=== PATIENT | male | born 1995 | race Caucasian/White ===

== ENCOUNTER 2017-02-28 17:27 | Emergency (ER) | payer SELFPAY ==
[~2017-02-28] VITALS: Ht 177.8 cm; Wt 109.1 kg
[2017-02-28 17:27] VITALS: BP 174/81
[2017-02-28] MEDS ORDERED: ZOFR4TAB3 PO (20:12)
[2017-02-28] MEDS ORDERED: MAGICMW SSP (20:12)
[2017-02-28] MEDS ORDERED: MAGIC MOUTHWASH SUSPENSION BTL SS ONE (20:15)
[2017-02-28] MEDS ORDERED: ONDANSETRON 4 MG ORAL DISINTEGRATING TAB (S0181) PO ONE (20:15)
== END 2017-02-28 20:36 | disposition home or self-care (01) ==
LOC: M ED 17:27
DX: J02.8 Acute pharyngitis due to other specified organisms (principal); R11.2 Nausea with vomiting, unspecified; F17.210 Nicotine dependence, cigarettes, uncomplicated; Z88.0 Allergy status to penicillin; Z88.8 Allergy status to other drugs, medicaments and biological substances

== ENCOUNTER 2017-03-07 16:34 | Emergency (ER) | payer SELFPAY ==
[~2017-03-07] VITALS: Ht 175.3 cm; Wt 110.0 kg
[~2017-03-07 16:34] MED LIST: MAGICMW SSP; ZOFR4TAB3 PO
[2017-03-07 16:53] VITALS: BP 169/97
[2017-03-07] MEDS ORDERED: VALA1TAB2 PO (18:23)
[2017-03-07] MEDS ORDERED: PRED20TA PO (18:23)
[2017-03-07 18:35] LABS: BASO % 0.3 % (0.0-1.0); EOS # 0.2 10^3/uL (0.0-0.50); EOS % 1.3 % (0.0-3.0); IMMATURE GRANULOCYTE % 0.7 % (0-0); LYMPH # 2.7 10^3/uL (1.5-6.5); LYMPH % 22.9 % (24.0-44.0); MEAN CORPUSCULAR HEMOGLOBIN 29.2 pg (27.0-33.0); MEAN CORPUSCULAR HGB CONC 34.3 g/dl (32.0-36.5); MEAN CORPUSCULAR VOLUME 85.2 fl (80.0-96.0); MONO # 0.9 10^3/uL (0.0-0.8); MONO % 7.2 % (0.0-5.0); NEUTROPHILS # 8.1 10^3/uL (1.8-7.7); NEUTROPHILS % 67.6 % (36.0-66.0); PLATELET COUNT, AUTOMATED 265 10^3/uL (150-450); RED CELL DISTRIBUTION WIDTH 13.9 % (11.5-14.5)
[2017-03-07 19:35] LABS: ERYTHROCYTE SEDIMENTATION RATE 8 mm/hr (0-15)
[2017-03-11 00:11] LABS: Lyme Disease IgG/IgM Antibodie <0.91 ISR (0.00-0.90); Lyme Disease IgM Ab Quantitati <0.80 index (0.00-0.79)
== END 2017-03-07 18:56 | disposition home or self-care (01) ==
LOC: M ED 16:34
DX: G51.0 Bell's palsy (principal); Z88.0 Allergy status to penicillin; Z88.8 Allergy status to other drugs, medicaments and biological substances

== ENCOUNTER 2018-02-03 18:23 | Emergency (ER) | payer SELFPAY ==
[2018-02-03] MEDS: ALBUTEROL SULFATE 2.5 MG/0.5 ML INH NEB SOLN NEB (18:48)
[2018-02-03] MEDS: DOXYCYCLINE HYCLATE 100 MG TAB PO (19:36)
== END 2018-02-03 19:43 | disposition home or self-care (01) ==
LOC: M ED 18:23
DX: J18.9 Pneumonia, unspecified organism (principal); J45.909 Unspecified asthma, uncomplicated; F17.210 Nicotine dependence, cigarettes, uncomplicated; Z88.0 Allergy status to penicillin
CPT/HCPCS: 71046

== ENCOUNTER 2020-10-10 16:43 | Emergency (ER) | payer OTHER, SELFPAY ==
[~2020-10-10] VITALS: Ht 177.8 cm; Wt 127.6 kg
[~2020-10-10 16:43] MED LIST changes: +DOXY100C37 PO; +PRED20TA PO; +PROAAER10 INH; +VALA1TAB5 PO; +ZOFR4TAB14 PO; -ZOFR4TAB3 PO
[2020-10-10] MEDS ORDERED: CLINDAMYCIN 150MG CAPSULE PO ONE (19:25)
[2020-10-10] MEDS ORDERED: KETOROLAC 30 MG/ML 1ML VIAL IM ONE (19:25)
[2020-10-10] MEDS ORDERED: KETO10TAB PO (19:25)
[2020-10-10] MEDS ORDERED: carBAMazepine 200MG TABLET PO ONE (19:25)
[2020-10-10] MEDS ORDERED: CARB20TA PO (19:25)
[2020-10-10] MEDS ORDERED: CLEO300C2 PO (19:25)
[2020-10-10] MEDS ORDERED: GABA-282 PO (19:25)
[2020-10-10] MEDS ORDERED: GABAPENTIN 300 MG CAP PO ONE (19:25)
[2020-10-10 19:38] VITALS: BP 138/77
== END 2020-10-10 20:02 | disposition home or self-care (01) ==
LOC: M ED 16:43
DX: K04.7 Periapical abscess without sinus (principal); G50.0 Trigeminal neuralgia; K02.9 Dental caries, unspecified; J45.909 Unspecified asthma, uncomplicated; F17.200 Nicotine dependence, unspecified, uncomplicated; Z88.0 Allergy status to penicillin
CPT/HCPCS: 96372; 99283; J1885

== ENCOUNTER → 2020-11-22 | Outpatient (CLI) | payer OTHER ==
[~2020-11-22] MED LIST changes: +CARB20TA PO; +CLEO300C2 PO; -DOXY100C37 PO; +DOXY1CAP62 PO; +GABA-282 PO; +KETO10TAB PO
[2020-11-22 13:43] LABS: BASO % 0.5 % (0.0-1.0); EOS # 0.2 10^3/uL (0.0-0.5); EOS % 2.5 % (0.0-3.0); HEMATOCRIT 42.8 % (42.0-52.0); HEMOGLOBIN 14.5 g/dl (13.5-17.5); LYMPH # 2.2 10^3/uL (1.5-5.0); LYMPH % 27.5 % (24.0-44.0); MEAN CORPUSCULAR HEMOGLOBIN 29.4 pg (27.0-33.0); MEAN CORPUSCULAR HGB CONC 33.9 g/dl (32.0-36.5); MEAN CORPUSCULAR VOLUME 86.8 fl (80.0-96.0); MONO # 0.7 10^3/uL (0.0-0.8); MONO % 9.3 % (2.0-8.0); NEUTROPHILS # 4.7 10^3/uL (1.5-8.5); NEUTROPHILS % 59.7 % (36.0-66.0); PLATELET COUNT, AUTOMATED 250 10^3/uL (150-450); RED BLOOD COUNT 4.93 10^6/uL (4.30-6.10); WHITE BLOOD COUNT 7.9 10^3/uL (4.0-10.0)
[2020-11-22 14:24] LABS: HEMOGLOBIN A1c 5.1 %
[2020-11-22 14:28] LABS: ALBUMIN 3.9 GM/DL (3.2-5.2); ALT/SGPT 21 U/L (12-78); BILIRUBIN,TOTAL 0.5 MG/DL (0.2-1.0); BLOOD UREA NITROGEN 12 MG/DL (7-18); CALCIUM LEVEL 8.6 MG/DL (8.5-10.1); CARBON DIOXIDE LEVEL 26 MEQ/L (21-32); CHLORIDE LEVEL 108 MEQ/L (98-107); CHOLESTEROL LEVEL 118 MG/DL (<200); CHOLESTEROL RISK RATIO 3.105 (<5); GLOMERULAR FILTRATION RATE > 60.0 (>60); GLUCOSE, FASTING 97 MG/DL (70-100); HDL CHOLESTEROL 38 MG/DL (>40); LDL CHOLESTEROL 62 MG/DL (<100); NON-HDL-C 80 MG/DL; POTASSIUM SERUM 4.7 MEQ/L (3.5-5.1); SODIUM LEVEL 139 MEQ/L (136-145); TOTAL PROTEIN 7.1 GM/DL (6.4-8.2); TRIGLYCERIDES LEVEL 92 MG/DL (<150)
== END ==
LOC: M PLALAB 09:40
PROVIDERS: ATTEND Nurse Practitioner Family
DX: Z13.220 Encounter for screening for lipoid disorders (principal); Z13.1 Encounter for screening for diabetes mellitus

== ENCOUNTER → 2021-05-15 | Outpatient (REF) | payer OTHER ==
[~2021-05-15] MED LIST changes: +DOXY-443 PO; -DOXY1CAP62 PO
[2021-05-15 18:02] LABS: RSV AMPLIFICATION NEGATIVE (NEGATIVE)
== END ==
LOC: M LAB REF 16:30
PROVIDERS: ATTEND Physician Assistant Medical
DX: R50.9 Fever, unspecified (principal)

== ENCOUNTER 2022-02-22 12:41 | Emergency (ER) | payer OTHER ==
[~2022-02-22] VITALS: Ht 180.3 cm; Wt 122.2 kg
[2022-02-22] MEDS ORDERED: FLON1SPR NARES (14:08)
[2022-02-22] MEDS ORDERED: OMEP-173 PO (14:08)
[2022-02-22 14:41] VITALS: BP 129/79
== END 2022-02-22 14:42 | disposition home or self-care (01) ==
LOC: M ED 12:41
DX: R07.89 Other chest pain (principal); K21.9 Gastro-esophageal reflux disease without esophagitis; F41.9 Anxiety disorder, unspecified; R00.2 Palpitations; J30.2 Other seasonal allergic rhinitis; Z88.0 Allergy status to penicillin; Z87.891 Personal history of nicotine dependence; Z82.49 Family history of ischemic heart disease and other diseases of the circulatory system; Z79.899 Other long term (current) drug therapy

== ENCOUNTER 2022-05-21 14:32 | Emergency (ER) | payer OTHER ==
[~2022-05-21] VITALS: Ht 177.8 cm; Wt 95.5 kg
[~2022-05-21 14:32] MED LIST changes: +FLON1SPR NARES; +OMEP-173 PO
[2022-05-21] MEDS ORDERED: CLEO300C2 PO (16:10)
[2022-05-21] MEDS ORDERED: HYDR-3713 PO (16:10)
[2022-05-21 16:21] VITALS: BP 139/81
== END 2022-05-21 16:28 | disposition home or self-care (01) ==
LOC: M ED 14:32
DX: K04.7 Periapical abscess without sinus (principal); Z88.0 Allergy status to penicillin

== ENCOUNTER → 2023-01-09 | Outpatient (CLI) | payer OTHER, SELFPAY ==
[~2023-01-09] MED LIST changes: +HYDR-3713 PO
[2023-01-09 17:10] LABS: ALKALINE PHOSPHATASE 66 U/L (46-116); ALT/SGPT 39 U/L (7.0-40); AST/SGOT 19 U/L (<34); BILIRUBIN,TOTAL 0.4 MG/DL (0.3-1.2); BLOOD UREA NITROGEN 13 MG/DL (9-23); CALCIUM LEVEL 9.6 MG/DL (8.5-10.1); CARBON DIOXIDE LEVEL 30 MMOL/L (20-31); CHLORIDE LEVEL 104 MMOL/L (98-107); CHOLESTEROL LEVEL 154 MG/DL (<200); CHOLESTEROL RISK RATIO 2.88 (<5); CREATININE FOR GFR 0.71 MG/DL (0.70-1.30); GLOMERULAR FILTRATION RATE > 60.0 (>60); GLUCOSE, FASTING 84 MG/DL (60-100); HDL CHOLESTEROL 53.3 MG/DL (>40); LDL CHOLESTEROL 81.5 MG/DL (<100); NON-HDL-C 100.7 MG/DL; POTASSIUM SERUM 4.7 MMOL/L (3.5-5.1); SODIUM LEVEL 140 MMOL/L (136-145); TOTAL PROTEIN 7.6 G/DL (5.7-8.2); TRIGLYCERIDES LEVEL 96 MG/DL (<150)
[2023-01-09 17:12] LABS: THYROID STIMULATING HORMONE 1.657 uIU/ML (0.55-4.78)
[2023-01-09 17:37] LABS: HIV 1&2 SCREEN NEGATIVE (NEGATIVE)
[2023-01-09 17:45] LABS: HEPATITIS C VIRUS ABY INDEX 0.17 INDEX (<0.8)
[2023-01-09 18:51] LABS: GC DNA AMPLIFICATION NEGATIVE (NEGATIVE)
== END ==
LOC: M PLALAB 13:59
PROVIDERS: ATTEND Family Medicine
DX: Z11.9 Encounter for screening for infectious and parasitic diseases, unspecified (principal)

== ENCOUNTER 2024-03-30 21:38 | Emergency (ER) | payer OTHER, SELFPAY ==
[~2024-03-30] VITALS: Ht 177.8 cm; Wt 121.0 kg
[~2024-03-30 21:38] MED LIST changes: +DOXY-441 PO; -DOXY-443 PO; +GABA-1172 PO; -GABA-282 PO
[2024-03-30 21:41] VITALS: TEMP 97.6
[2024-03-30 22:14] LABS: BASO # 0.1 10^3/uL (0.0-0.2); BASO % 0.4 % (0.0-1.0); EOS # 0.2 10^3/uL (0.0-0.5); EOS % 1.7 % (0.0-3.0); HEMATOCRIT 45.1 % (42.0-52.0); HEMOGLOBIN 15.6 g/dl (13.5-17.5); LYMPH # 3.6 10^3/uL (1.5-5.0); MEAN CORPUSCULAR HEMOGLOBIN 29.7 pg (27.0-33.0); MEAN CORPUSCULAR HGB CONC 34.6 g/dl (32.0-36.5); MEAN CORPUSCULAR VOLUME 85.7 fl (80.0-96.0); MONO # 0.8 10^3/uL (0.0-0.8); MONO % 6.8 % (2.0-8.0); NEUTROPHILS # 6.6 10^3/uL (1.5-8.5); NEUTROPHILS % 58.5 % (36.0-66.0); PLATELET COUNT, AUTOMATED 285 10^3/uL (150-450); RED BLOOD COUNT 5.26 10^6/uL (4.30-6.10); WHITE BLOOD COUNT 11.2 10^3/uL (4.0-10.0)
[2024-03-30 22:36] LABS: ETHYL ALCOHOL (ETHANOL) 0.003 % (0.000-0.010)
[2024-03-30 22:37] LABS: SALICYLATE LEVEL < 3.0 MG/DL (<30)
[2024-03-30 22:38] LABS: ALBUMIN 4.2 G/DL (3.2-5.2); ALKALINE PHOSPHATASE 63 U/L (40-129); ALT/SGPT 16 U/L (7.0-40); AST/SGOT 11 U/L (<34); BILIRUBIN,DIRECT 0.2 MG/DL (<0.4); BILIRUBIN,TOTAL 0.6 MG/DL (0.3-1.2); BLOOD UREA NITROGEN 10 MG/DL (9-23); CALCIUM LEVEL 9.7 MG/DL (8.5-10.1); CARBON DIOXIDE LEVEL 27 MMOL/L (20-31); CHLORIDE LEVEL 107 MMOL/L (98-107); CK-MB VALUE MASS < 1.0 NG/ML (<3.6); CREATININE FOR GFR 0.71 MG/DL (0.70-1.30); GLOMERULAR FILTRATION RATE > 60.0 (>60); GLUCOSE, FASTING 103 MG/DL (60-100); POTASSIUM SERUM 3.6 MMOL/L (3.5-5.1); SODIUM LEVEL 140 MMOL/L (136-145); TOTAL PROTEIN 7.7 G/DL (5.7-8.2)
[2024-03-30 22:40] LABS: THYROID STIMULATING HORMONE 1.605 uIU/ML (0.55-4.78)
[2024-03-30 22:44] LABS: CPK CREATINE PHOSPHOKINASE 91 U/L (46-171); MB/CK RELATIVE INDEX 1.09 (< OR =4)
[2024-03-30 23:53] LABS: AMPHETAMINES LEVEL URINE NEGATIVE (NEGATIVE); BARBITURATES URINE NEGATIVE (NEGATIVE); BENZODIAZEPINES URINE NEGATIVE (NEGATIVE); METHADONE URINE NEGATIVE (NEGATIVE); OPIATES URINE NEGATIVE (NEGATIVE); PHENCYCLIDINE URINE NEGATIVE (NEGATIVE)
[2024-03-30 23:54] LABS: CANNABINOIDS URINE POSITIVE (NEGATIVE); COCAINE METABOLITE URINE POSITIVE (NEGATIVE)
[2024-03-31] MEDS ORDERED: HYDR-3363 PO (00:17)
[2024-03-31 00:25] VITALS: BP 148/84; O2SAT 98
== END 2024-03-31 00:33 | disposition home or self-care (01) ==
LOC: M ED 21:38
DX: F41.0 Panic disorder [episodic paroxysmal anxiety] (principal); F19.10 Other psychoactive substance abuse, uncomplicated; R00.0 Tachycardia, unspecified; K21.9 Gastro-esophageal reflux disease without esophagitis; F12.10 Cannabis abuse, uncomplicated; F17.200 Nicotine dependence, unspecified, uncomplicated; Z88.0 Allergy status to penicillin; Z79.1 Long term (current) use of non-steroidal anti-inflammatories (NSAID); Z79.899 Other long term (current) drug therapy